=== PATIENT | female | born 1985 | race Caucasian/White ===

== ENCOUNTER 2023-10-29 09:30 | Emergency (ER) | payer BC, SELFPAY ==
[2023-10-29 09:39] VITALS: BP 117/73
[2023-10-29] MEDS: NSS 1000 IV ×2 (10:06→12:45)
[2023-10-29] MEDS: DILAUDID 0.5 MG IV (10:07)
[2023-10-29] MEDS: PEPCID 20 MG IV (10:07)
[2023-10-29] MEDS: ZOFRAN 4 MG IV ×2 (10:13→12:45)
--- NOTE | 2023-10-29 10:16 | ED.GENMED ---
History of Present Illness
General
Chief Complaint: Abdominal Pain
Source: patient
Exam Limitations: none
Time Seen by Provider: 10/29/23 09:49
Nursing documentation reviewed up to this point in time: agreed with
Travel History
Have you had any contact with someone who has COVID-19?: No
Do you have any symptoms of coronavirus? Fever > 100 degrees, chills, cough, shortness of breath, sore throat, loss of taste or smell, muscle aches, or headache?: No
History of Present Illness
History of Present Illness:
38-year-old female with past medical history of endometriosis anxiety depression presenting to the emergency department today with concerns of abrupt onset of nausea vomiting diarrhea over the past 5 hours prior to arrival. Also claims have ongoing
discomfort to her upper abdomen in association. This has been somewhat fluctuating feels crampy. Denies any blood in her vomit denies any fevers denies known sick
Review of Systems
Review of Systems
Allergies reviewed?: Yes
All Other Systems: ROS reviewed and negative except as documented in HPI and ROS
Phy Exam
Physical Exam
Physical Exam:
GENERAL: Alert , in no apparent distress
EYE: pupils equal and reactive
NECK: Supple, no significant adenopathy.
ENT: o/p clr, mmm.
CARDIAC: Regular rate and rhythm .
LUNGS: Clear breath sounds bilaterally, no acute respiratory distress, no wheezes/rales/rhonchi
ABDOMEN: Soft, without focal tenderness, no r/g, no cvat
NEUROLOGICAL: Alert and oriented, no focal neuro deficits
SKIN: Warm and dry, skin intact.
MUSCULOSKELETAL: No edema, well perfused.
PSYCH: Normal and appropriate interaction.
Course
Orders/Labs/Results
Orders:
Orders
10/29/23 09:41
Electrocardiogram (*1) Urgent
Reason for Study: Chest Pain
EKG- Treatment ONCE
10/29/23 09:56
Urinalysis Reflex To Culture Urgent
0.9% Sodium Chloride 1000 ml [Nss] 1,000 ml IV BOLUS
Famotidine [Pepcid] 20 mg IV NOW STA
HYDROmorphone [Dilaudid] 0.5 mg IV NOW STA
Ondansetron Orally Disint [Zofran Odt (Orally Disintegrating)] 4 mg PO NOW STA
10/29/23 09:57
Test Result ONCE
10/29/23 10:04
Complete Blood Count/With Diff Urgent
Comprehensive Metabolic Panel Urgent
HCG, Serum Qualitative Screen Urgent
Lipase Urgent
10/29/23 10:10
Ondansetron Injectable [Zofran] 4 mg IV NOW STA
10/29/23 12:27
0.9% Sodium Chloride 1000 ml [Nss] 1,000 ml IV BOLUS
Ondansetron Injectable [Zofran] 4 mg IV NOW STA
Abnormal Lab Results
10/29/23
10:04
MCH 31.5 H pg
(27.0-31.0)
Absolute Neuts (auto) 8.5 H 10^3/uL
(1.4-6.5)
Absolute Lymphs (auto) 0.8 L 10^3/uL
(1.2-3.4)
Neutrophils % 88.1 H %
(42.2-75.2)
Lymphocytes % 7.8 L %
(20.5-51.1)
Carbon Dioxide 18 L mmol/L
(22-30)
Glucose 112 H mg/dl
(70-99)
10/29/23 10:04
10/29/23 10:04
Vital Signs
Initial and Last Documented VS:
Initial Vital Signs
Temp Pulse Resp BP Pulse Ox
97.8 F 80 20 117/73 100
10/29/23 09:39 10/29/23 09:39 10/29/23 09:39 10/29/23 09:39 10/29/23 09:39
Last Documented Vital Signs
Temp Pulse Resp BP Pulse Ox
97.8 F 86 16 108/66 100
10/29/23 09:39 10/29/23 11:04 10/29/23 11:04 10/29/23 11:04 10/29/23 11:04
MDM/Problems Addressed
MDM/Problems Addressed:
38-year-old female presenting to the emergency department with diffuse onset of persisting nausea vomiting diarrhea over the past 5 hours or so. Here her abdomen generally is benign no specific focal tenderness. She claims to be uncomfortable and
have ongoing abdominal pain but abdominal exam is reassuring. Symptoms seem most consistent with gastroenteritis considering abrupt onset of nausea vomiting and diarrhea. Plan for symptomatic treatment and labs to be drawn. Plan to reassess.
After giving medications patient with significant improvement of symptoms. Symptoms most likely consistent with gastroenteritis stable for outpatient management return precautions given.
*Critical Care Note
Total Time (30-74mins, 75-104mins- exclusive of procedures): Not Applicable
ED Attending Note
-
Portions of this chart may have been created with voice recognition software.� Occasional wrong word or��sound alike� substitutions may have occurred due to the inherent limitations of voice recognition software.
Discharge Plan
Departure
Patient Disposition: Home (Routine Discharge)
Date of Disposition: 10/29/23
Time of Disposition: 13:02
Patient with high blood pressure during this ER visit?: No
Condition: Good
Covid-19: Not Applicable
Discharge Problem:
Gastroenteritis
Instructions: Nausea and Vomiting, Adult (DC)
Prescriptions:
New
ondansetron 4 mg tablet,disintegrating
4 mg PO Q8H PRN (Reason: nausea and vomiting) Qty: 7 0RF
Referrals:
Mac Hatch DO [Family Provider] -
Activity Restrictions/Additional Instructions:
You came to the emergency department today with concerns of severe vomiting and diarrhea. Here your labs were reassuring. Your improvement of symptoms were reassuring as well. This appears to be consistent with gastroenteritis. Please take the
prescribed medications and symptoms will hopefully improve over the next 24 to 48 hours. Return to the emergency department for any worsening, new or concerning symptoms.
Interventions
Interventions:
*Risk Screen - Suicide Last Done: 10/29/23 10:11
*General Assessment Last Done: 10/29/23 10:11
*Neglect/Abuse Screening Last Done: 10/29/23 10:11
*ED COVID-19 Vaccine History Last Done: 10/29/23 10:11
QG-Qqezpr-Fxuxqpuxtt Assessment Last Done: 10/29/23 10:10
[2023-10-29 10:19] LABS: % Basophils 0.3 % (0-2); % Eosinophils 0.3 % (0-6); % Immature Granulocytes 0.4 % (0-0.5); % Lymphocytes 7.8 % (20.5-51.1); % Monocytes 3.1 % (1.7-9.3); % Neutrophils 88.1 % (42.2-75.2); Absolute Lymphocytes 0.8 10^3/uL (1.2-3.4); Absolute Monocytes 0.3 10^3/uL (0.1-0.6); Absolute Neutrophils 8.5 10^3/uL (1.4-6.5); Hematocrit 41.6 % (37.0-47.0); Hemoglobin 15.2 g/dL (12.0-16.0); Mean Corp Hgb Conc. 36.5 g/dL (33.0-37.0); Mean Corpuscular Hgb 31.5 pg (27.0-31.0); Mean Corpuscular Volume 86.3 fL (81.0-99.0); Nucleated Red Blood Cells % 0 %; Platelet Count 359 10^3/uL (130-400); Red Blood Cell Count 4.82 10^6/uL (4.20-5.40); Red Cell Dist. Width 12.2 % (11.5-14.5); White Blood Cell Count 9.7 10^3/uL (4.8-10.8)
[2023-10-29 10:34] LABS: HCG, Serum Qualitative Screen Negative
[2023-10-29 10:36] LABS: ALT (SGPT) 29 U/L (0-35); AST (SGOT) 36 U/L (14-36); Alkaline Phosphatase 74 U/L (38-126); Blood Urea Nitrogen 7 mg/dl (7-17); Calcium 9.9 mg/dl (8.4-10.2); Carbon Dioxide 18 mmol/L (22-30); Chloride 103 mmol/L (98-107); Glucose 112 mg/dl (70-99); Lipase 47 U/L (23-300); Potassium 3.8 mmol/L (3.5-5.1); Sodium 137 mmol/L (135-145); Total Bilirubin 0.9 mg/dl (0.2-1.3); eGFR > 60.00
[2023-10-29 11:04] VITALS: BP 108/66
[2023-10-29 13:35] VITALS: BP 103/67
== END 2023-10-29 13:55 | disposition home or self-care (01) ==
LOC: EMR 09:30
PROVIDERS: Physician Assistant; EMERGENCY PHYSICIAN Emergency Medicine; FAMILY PHYSICIAN Family Medicine
DX: K52.9 Noninfective gastroenteritis and colitis, unspecified (principal); R10.10 Upper abdominal pain, unspecified; F41.9 Anxiety disorder, unspecified; F32.A Depression, unspecified; N80.9 Endometriosis, unspecified; Z88.2 Allergy status to sulfonamides; Z88.8 Allergy status to other drugs, medicaments and biological substances; Z88.6 Allergy status to analgesic agent; Z91.040 Latex allergy status
CPT/HCPCS: 99284; 96374; 96375 ×2; 96361 ×2; 96376; 80053; 83690; 84703; 85025; 93005